=== PATIENT | female | born 1960 | race Asian ===

== ENCOUNTER 2022-02-26 17:12 | Outpatient (CLI) | payer BC | END 2022-02-26 17:13 | disposition home or self-care (01) | LOC: NAV RAD 17:12 | PROVIDERS: ATTEND Nurse Practitioner Family | DX: R22.42 Localized swelling, mass and lump, left lower limb (principal) ==

== ENCOUNTER 2023-08-26 17:10 | Outpatient (CLI) | payer BC | END 2023-08-26 17:11 | disposition home or self-care (01) | LOC: NAV RAD 17:10 | PROVIDERS: ATTEND Nurse Practitioner Family | DX: M79.645 Pain in left finger(s) (principal) ==